=== PATIENT | male | born 1940 | race Caucasian/White ===

== ENCOUNTER → 2016-12-15 | Outpatient (CLI) | payer MEDICARE ==
--- NOTE | 2016-12-15 10:21 | Diagnostic Imaging Report ---
Examination: DEXA scan. Indication: osteopenia Technique: Bone mineral density estimated based on dual energy radiography over the lumbar spine and femoral necks, was performed. Findings: The lumbar spine T-score is 0, Femoral neck- right -1.0 and left -1.4. Impression: Osteopenia. Dictated by: Dictated on workstation # [id number]
== END ==
LOC: RAD 09:24
PROVIDERS: ATTEND Internal Medicine
DX: Z13.820 Encounter for screening for osteoporosis (principal); M85.89 Other specified disorders of bone density and structure, multiple sites
CPT/HCPCS: 77080

== ENCOUNTER 2019-05-07 09:45 | Outpatient (CLI) | payer MEDICARE ==
[~2019-05-07] VITALS: Ht 177.8 cm; Wt 85.5 kg
[2019-05-07] MEDS ORDERED: AMLO2.5T4 PO (10:07)
[2019-05-07] MEDS ORDERED: LOVA20TA2 PO (10:07)
[2019-05-07] MEDS ORDERED: LISI-552 PO (10:07)
== END 2019-05-07 10:04 | disposition home or self-care (01) ==
LOC: PREOP 09:45
PROVIDERS: ATTEND Internal Medicine
DX: Z01.818 Encounter for other preprocedural examination (principal)